=== PATIENT | female | born 2000 | race Caucasian/White ===

== ENCOUNTER 2023-08-01 08:15 | Day surgery (SDC) | payer BC, SELFPAY ==
[2023-08-01] VITALS (8 sets, daily range): BP systolic 102–113; BP diastolic 65–78; PULSE 89–110; RESP 14–18; TEMP 36.2–36.8; O2SAT 100; BMI 22.1
[2023-08-01 08:41] LABS: Internal QC Validated? YES +Cl - CLEAR BKGD; Record Kit Lot#,Urine Preg HCG0000718086
[2023-08-01 08:44] LABS: Pregnancy, Urine Negative Negative
--- OUTSIDE RECORDS SUMMARY | 2023-08-01 08:48 | XMS RPT_ITS | CCD ---
Author Name Unknown Address [address] [place] [address] [address] [place] [address] Organization [facility] Care Team Providers Care Utility Worker [employer] Name Role Phone Daniel KNIGHT Primary Care Physician Jillian Corrigan Attending Unavailable Jillian Corrigan Admitting Unavailable Daniel KNIGHT Attending Unavailable Allergies Allergy Classification Reported Allergen(s) Allergy Type Date of Onset Reaction(s) Facility (1 source) No Known Medication Allergies; Translations: [No Known Medication Allergies] Propensity to adverse reactions (disorder) [facility] Repository Medications Current Medications Medication Drug Class(es) Dates Sig (Normalized) Sig (Original) esomeprazole 40 mg delayed release oral capsule (2 sources) Proton Pump Inhibitor Start: 01-25-2021 take 1 capsule by mouth once daily Nexium 40 mg Cap-EC 40 mg = 1 cap(s), Oral, Daily, # 90 cap(s), Refills(s) 0, Pharmacy: [facility] Start Date: 01/25/21 Status: Ordered famotidine 40 mg oral tablet (2 sources) Histamine-2 Receptor Antagonist Start: 01-25-2021 take 1 tablet by mouth once daily at bedtime famotidine 40 mg Tab 40 mg = 1 tab(s), Oral, Once a day (at bedtime), # 30 tab(s), Refills(s) 0, Pharmacy: [facility] Start Date: 01/25/21 Status: Ordered methylPREDNISolone 4 mg oral tablet (1 source) Corticosteroid Start: 10-01-2022 End: 10-07-2022 Medrol 4 mg Tab = 1 packet(s), Oral, As Directed, as directed on package labeling, X 6 day(s), # 21 tab(s), Refills(s) 0, Pharmacy: [facility] #[id number], 157.4, cm, 10/01/22 16:31:00 EDT, Height/Length Dosing, 53.7, kg, 10/01/22 16:31:00 EDT, Weight Dosing Start Date: 10/01/22 Stop Date: 10/07/22 Status: Ordered Completed/Discontinued Medications Medication Drug Class(es) Dates Sig (Normalized) Sig (Original) {21 (Desogestrel 0.15 MG / Ethinyl Estradiol 0.03 MG Oral Tablet) / 7 (Inert Ingredients 1 MG Oral Tablet) } Pack [Enskyce 28 Day] (2 sources) Progestin, Estrogen Start: 10-01-2022 take 1 tablet by mouth once daily Enskyce 0.15 mg-0.03 mg oral tablet take 1 tablet by mouth once daily Start Date: 10/01/22 Status: Ordered Problems Problem Classification Problem Date Documented Da te Episodic/Chronic Headache; including migraine (3 sources) Headache; Translations: [Headache, unspecified] Onset: 10-01-2022 Episodic Results Test Name Value Interpretation Reference Range Facil ity Vital Signs Date Time Vital Sign Value Performing Clinician Faci lit 10-01-2022 16:27-0400 Blood Pressure Location Daniel KNIGHT [facility] 10-01-2022 16:27-0400 Body temperature 98.96 [degF] Daniel KNIGHT [facility] 10-01-2022 16:27-0400 Diastolic blood pressure 82 mm[Hg] Daniel KNIGHT [facility] 10-01-2022 16:27-0400 Heart rate 107 /min Daniel KNIGHT [facility] 10-01-2022 16:27-0400 SaO2% (BldA) [Mass fraction] 99 % Daniel KNIGHT [facility] 10-01-2022 16:27-0400 Systolic blood pressure 126 mm[Hg] Daniel KNIGHT [facility] Encounters Encounter Date Encounter Type Care Provider Facility Start: 07-14-2023 End: 07-15-2023 ambulatory Jillian Corrigan [place] [place]: 07-14-2023 End: 07-14-2023 Lab Drop off Jillian Corrigan [facility] Start: 10-01-2022 End: 10-02-2022 ambulatory Daniel KNIGHT Facility:[facility] Start: 10-01-2022 End: 10-01-2022 Patient encounter procedure Daniel KNIGHT [facility] Immunizations Immunization Date Immunization Notes Care Provider Michelle delgado 11-27-2017 HPV, unspecified formulation Daniel KNIGHT [facility] 06-20-2016 HPV, unspecified formulation Daniel KNIGHT [facility] 04-10-2016 HPV, unspecified formulation Daniel KNIGHT [facility] 04-10-2016 meningococcal ACWY vaccine, unspecified formulation Daniel KNIGHT [facility] 12-10-2011 meningococcal ACWY vaccine, unspecified formulation Daniel KNIGHT [facility] 12-10-2011 tetanus toxoid, redu gagan diphtheria toxoid, and acellular pertussis vaccine, adsorbed Daniel KNIGHT [facility] 12-10-2011 varicella virus vaccine Garth KNIGHT [facility] 08-24-2004 diphtheria, tetanus toxoids and acellular pertussis vaccine Daniel KNIGHT [facility] 08-24-2004 measles, mumps and rubella virus vaccine Daniel KNIGHT [facility] 08-24-2004 poliovirus vaccine, unspecified formulation Daniel EUGENE [facility] 02-02-2001 DTaP, unspecified formulation Daniel EUGENE [facility] 02-02-2001 Hib, unspecified formulation Daniel EUGENE [facility] 08-13-2000 measles, mumps and rubella virus vaccine Daniel EUGENE [facility] 08-13-2000 varicella virus vaccine Garth KNIGHT [facility] 04-18-2000 hepatitis B vaccine, pediatric or pediatric/adolescent dosage Daniel EUGENE [facility] 01-31-2000 hepatitis B vaccine, pediatric or pediatric/adolescent dosage Daniel EUGENE [facility] 01-23-2000 DTaP, unspecified formulation Daniel EUGENE [facility] 01-23-2000 Hib, unspecified formulation Daniel EUGENE [facility] 1999 DTaP, unspecified formulation Daniel EUGENE [facility] 1999 Hib, unspecified formulation Daniel EUGENE [facility] 1999 DTaP, unspecified formulation Daniel EUGENE [facility] 1999 hepatitis B vaccine, pediatric or pediatric/adolescent dosage Daniel EUGENE [facility] 1999 Hib, unspecified formulation Daniel EUGENE [facility] 1999 hepatitis B vaccine, pediatric or pediatric/adolescent dosage Daniel EUGENE [facility] Payers Date Payer Category Payer Unknown [id number] 2000 Unknown [id number] 1999 Unknown [id number] Social History Date Type Detail Facility Start: 10-01-2022 Tobacco smoking status Never s moked tobacco (finding) [facility] Tobacco smoking status Never [facility] Sex Assigned At Female [facility] Functional Status Date Assessment Result Facility 10-01-2022 Functional Status N/A [facility] Evaluation + Plan note 10-01-2022 Radiology Note Date & Type Note Facility 10-01-2022 Evaluation + Plan note Future Scheduled TestsCT Head or Brain w/o Contrast 10/01/22 [facility] Hospital course Narrative Note Date & Type Note Facility Hospital course Narrative No data available for this section [facility] Hospital Discharge instructions Note Date & Type Note Facility Hospital Discharge instructions No data available for this section [facility] Progress note Note Date & Type Note Facility Progress note No data available for this section [facility] Summary Purpose Family History No Family History Records Found Advance Directives No Advanced Directives Records Found Additional Source Comments Patient Care team informatio n (unrecognized section and content) Personnel Name: Daniel KNIGHT DO Address: Address: [address] [facility] [address] [place] [address]- Personnel Name: Daniel KNIGHT DO Address: Address: [address] [place] [address]- INFORMATION SOURCE (unrecogn ized section and content) FOR RECORDS PERTAINING TO PATIENTS WHO ARE OR HAVE BEEN ENROLLED IN A CHEMICAL DEPENDENCY/SUBSTANCEABUSE PROGRAM, SOME INFORMATION MAY BE OMITTED. This clinical summary was aggregated from multiple sources. Caution should be exercised in using it in the provision of clinical care. This summary normalizes information from multiple sources, and as a consequence, information in this document may materially change the coding, format and clinical context of patient data. In addition, data may be omitted in some cases. CLINICAL DECISIONS SHOULD BE BASED ON THE PRIMARY CLINICAL RECORDS. [facility]. provides no warranty or guarantee of the accuracy or completeness of information in this document.
[2023-08-01] MEDS: Lactated Ringers 1,000 ML 15 ML IV (08:49)
--- NOTE | 2023-08-01 09:31 | PCM.HP.BLA ---
History and Physical Date of Admission: 08/01/23 Rosa Maria presents with 2 pigmented lesions of the left trunk with recent growth or change. 1 of these lesions is on the left areola and the other on the left chest. She is examined and her H&P is unchanged from the exam of 07/03/2023. Assessment & Plan Assessment/Plan (1) Neoplasm of uncertain behavior of skin: PLAN: Plan She presents for excision lesion of the left areola and left chest with submission for pathologic evaluation.
--- NOTE | 2023-08-01 09:50 | LES_PTH ---
PATHOLOGY RESULTS PATIENT: KATTY CASON [place] [facility] [id number] AGE/SX: 22/ ROOM: RE08/01/[address]: Dr. Jillian Chávez MD : 2000 BED: DIS: 08/01/2023 SPEC #: [id number] RECD: 08/01/23 11:09 STATUS: AMANUEL VIVIEN #: [id number] MEREDITH: 08/01/23 09:[address]: Jillian Chávez DEPT: SURGICAL PATHOLOGY RECD BY: Edyta Montague ENTERED: 08/01/23 11:56 SP TYPE: Lesion Tissues: Skin of breast, NOS Skin of chest Procedures: Surgery Specimen Level IV HEADER OPERATION: Excision lesion left areola (1.5 cm), excision lesion left chest PRE-OP DIAGNOSIS: Neoplasm of uncertain behavior of skin TISSUE SUBMITTED: A - Pigmented lesion left areola, B - Pigmented lesion left chest MICROSCOPIC DIAGNOSIS A. 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 See comment. B. 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 See comment. SJ:rg 08/11/2023 COMMENT Both specimens were sent to [facility] for expert opinion, reviewed by Dr. Chin and the above diagnosis is rendered. The complete report is viewable in the patient's EMR. B. Dr. Chin also comment that the inked margins are free at the planes of section examined. The lesion is predominantly junctional. Clinical correlation and appropriate follow up are necessary. Case has been reviewed in consultation with Dr. Kaur who concurs with the above diagnosis. IDC:AM MICROSCOPIC DESCRIPTION Slides are reviewed. GROSS DESCRIPTION A - Received in fixative is one container labeled with the patient's name and designated pigmented lesion left areola. The specimen consists of a piece of huffman-white skin ellipse measuring 1.7 x 0.6 x 0.2 cm. The specimen is inked, serially sectioned and submitted entirely in one cassette. B - Received in fixative is one container labeled with the patient's name and designated pigmented lesion left chest. The specimen consists of a piece of huffman-white skin ellipse measuring 1.2 x 0.6 cm and up to 0.3 cm in thickness. The specimen is inked, serially sectioned and submitted entirely in one cassette. / SEEMA:socorro 08/01/2023 TC:1 CPT: 26157 x2
[2023-08-01] MEDS: Cefazolin 2 GM in 0.9% Normal Saline (100mL Bag) 100 ML IV (09:54)
[2023-08-01] MEDS: Lidocaine 1% /Epi 1:100 (20ml) 20 ML Vial (10:15)
--- NOTE | 2023-08-01 10:52 | DCINST_ITS ---
Discharge Instructions Dressing / Incision Additional Dressing/Incision Instructions:: Keep back elevated (recliner position) for the next 3 nights to reduce bruising and swelling. Take the oral antibiotic (Keflex) 2 x a day until finished. May shower over the dressings, but do not scrub. (If you experience itching or irritation from the dressings, remove them and apply a bandaid for a dressing, but change it daily.) Follow Up Care Please Follow Up With: Jillian Chávez MD When: 2 weeks Test Results: Test results from this visit will be discussed in further detail at your follow- up appointment, if applicable. Discharge Plan Admission Attending Provider: Jillian Chávez Primary Care Provider: JONO KNIGHT Discharge Orders/Prescriptions Prescriptions: New cephalexin 500 mg capsule 500 mg PO BID 7 Days Qty: 14 0RF No Action desogestrel-ethinyl estradiol [Enskyce] 0.15-0.03 mg tablet 1 tab PO DAILY Disposition Disposition (needs filled in before D/C Order can be placed): Home, Self Care
--- NOTE | 2023-08-01 10:56 | PCM.OPRPT ---
Problems Associated Problem List Diagnoses (1) Neoplasm of uncertain behavior of skin: Report of Operation Date of Procedure: 08/01/23 Pre-Operative Diagnosis: Pigmented lesion with recent growth or change left areola and left chest Post-Operative Diagnosis: Same Surgery/Procedure Performed:: Excision lesion left areola (2.5 cm) with intermediate closure; excision lesion left chest (1.5 cm) with intermediate closure Surgeon: Jillian Chávez Type of Anesthesia: General Specimen's removed: Pigmented lesions x 2 Estimated Blood Loss (mL): Minimal Description of Procedure: The patient presents with recent growth or change of a pigmented lesion of the left areola and left chest. She presents for excision of the lesions with submission for pathologic evaluation. The patient was brought to the operating room and placed under general anesthesia in the supine position. The left chest is prepped and draped in the usual sterile fashion. 1% Xylocaine with epinephrine is used for local anesthetic. Following this, the pigmented lesion along the rim of the left areola is excised and passed off the operative field to be sent to pathology. Hemostasis is controlled with cautery. The wound is then closed in layers using a 5-0 Monocryl suture in the subcutaneous tissue and dermis in a [id number] fashion. Following this, the skin edges were approximated with a running subcuticular Monocryl suture. Further reinforcement the closure is done with interrupted Prolene suture. We then directed our attention to the lesion of the left chest and after this is anesthetized to help facilitate hemostasis, the site is elliptically excised and passed off the operative field. Hemostasis is controlled with cautery. The site is then closed using [id number] Monocryl sutures to approximate subcutaneous tissue and dermis. Skin edges were approximated with a running subcuticular Monocryl suture. Further reinforcement the closure was done with a interrupted Prolene suture. Dermabond is applied to the incisions along with Steri-Strips and Tegaderm. She tolerated the procedure well was taken to the recovery area in an awake and stable condition. Needle and sponge counts are correct. Complications None Admit VTE Documentation VTE Mechan Device Prophylaxis: SCD's
== END 2023-08-01 12:30 | disposition home or self-care (01) ==
LOC: SDC 08:18 → AC 08:19
PROVIDERS: Anesthesiology; Referring Provider Plastic Surgery; Visit Provider Plastic Surgery
PROC: (CPT 11603; principal; 2023-08-01 09:40)
DX: D22.5 Melanocytic nevi of trunk (principal); D23.5 Other benign neoplasm of skin of trunk
CPT/HCPCS: 11603; 11402; 12032; 00300; 81025; 88305; J7120; J2405